=== PATIENT | male | born 1985 | race Caucasian/White ===

== ENCOUNTER 2020-09-18 20:33 | Emergency (ER) | payer OTHER ==
[~2020-09-18 20:33] MED LIST: FLEXERIL10 MG PO; IBUPROFEN800 MG PO
[2020-09-18] MEDS ORDERED: HYDROCODON-ACE1 EAC2 PO (21:51)
[2020-09-24] MEDS ORDERED: PERCOCET 5-3251 EACH PO (12:29)
== END 2020-09-18 22:06 | disposition home or self-care (01) ==
LOC: FER 20:33
DX: S82.61XA Displaced fracture of lateral malleolus of right fibula, initial encounter for closed fracture (principal); W00.0XXA Fall on same level due to ice and snow, initial encounter
CPT/HCPCS: 73610

== ENCOUNTER → 2020-09-24 | Day surgery (SDC) | payer OTHER ==
[~2020-09-24] VITALS: Ht 182.9 cm; Wt 117.9 kg
[~2020-09-24] MED LIST changes: +HYDROCODON-ACE1 EAC2 PO; +PERCOCET 5-3251 EACH PO
[2020-09-24 12:18] LABS: HCT 42.1 % (42.0-52.0); HGB 13.7 g/dl (13.2-18.0); MCH 26.3 pg (25.0-31.0); MCHC 32.5 g/dL (32.0-36.0); MPV 9.6 fL (6.0-9.5); RBC 5.2 M/uL (4.70-6.00); RDW 13.2 % (11.5-14.0); WBC 3.6 K/uL (4.0-10.5)
[2020-09-24 12:56] LABS: ALBUMIN 3.8 g/dL (3.4-5.0); BILIRUBIN - TOTAL 0.8 mg/dL (0.2-1.0); BUN/CREAT RATIO (CALC) 15.5 RATIO; CREATININE 0.71 mg/dL (0.67-1.17); GLOBULIN (CALCULATION) 3.6 g/dL; POTASSIUM 3.5 mmol/L (3.5-5.1); TOTAL PROTEIN 7.4 g/dL (6.4-8.2)
== END | disposition home or self-care (01) ==
LOC: FAS 12:02
PROVIDERS: Orthopaedic Surgery
DX: S82.451A Displaced comminuted fracture of shaft of right fibula, initial encounter for closed fracture (principal); W00.0XXA Fall on same level due to ice and snow, initial encounter
CPT/HCPCS: 36415; 71045; 73600; 76000; 80053; 93005; C1713; J0690; J1100; J1885; J2250; J2405; J2704; J2795; J3010